=== PATIENT | female | born 1975 | race Caucasian/White ===

== ENCOUNTER 2020-09-11 10:17 | Day surgery (SDC) | payer OTHER ==
[~2020-09-11] VITALS: Ht 162.6 cm; Wt 91.2 kg
--- NOTE | 2020-09-11 10:34 | NUR ---
"I'VE HAD SHARP/STABBING ABD PAIN THREE TIMES THIS PAST WEEK, NOTHING WILL RELIEVE IT. ABOUT 0100 THIS MORNING ITS GOTTEN REALLY SEVERE." PT POINTS TO EPIGASTRIC AREA AND RADIATES TO SHOULDERS. HX OF GERD, SD (8-10YR AGO) DENIES TAKING ANY MEDS. EKG DONE IN [facility] AT 1034
--- NOTE | 2020-09-11 10:35 | NUR ---
PT STATES SHE IS ALSO ALLERGIC TO A LOT OF PAIN MEDICATIONS. UNSURE OF WHAT ONES OR WHAT HAPPENS WHEN SHE TAKES THEM.
--- NOTE | 2020-09-11 10:46 | NUR ---
patient arrives to er with pain in bilateral upper abdomen on and off for a week and is accompanied by sob. on monitor, rails up
[2020-09-11 11:07] LABS: MICROSCOPIC NOT IND
--- NOTE | 2020-09-11 11:15 | NUR ---
blood drawn, clean catch urine sent. patient in bed, awaiting ultrasound
[2020-09-11 11:27] LABS: BASOPHILS % (AUTO) 0 % (0-1); EOSINOPHILS % (AUTO) 3 % (1-7); LYMPHOCYTES % (AUTO) 23 % (22-44); MEAN CORPUSCULAR HEMOGLOBIN 31.7 pg (27.0-34.8); MEAN CORPUSCULAR HGB CONC 34.8 g/dL (32.4-35.8); MEAN PLATELET VOLUME 7.7 fL (7.4-10.4); MONOCYTES % (AUTO) 7 % (2-9); NEUTROPHILS % (AUTO) 66 % (42-75); PLATELET COUNT 193 x10^3/uL (130-400); RED BLOOD COUNT 4.45 x10^6/uL (3.82-5.3); RED CELL DISTRIBUTION WIDTH 13.1 % (9.6-15.2)
[2020-09-11 11:28] LABS: MD NO
[2020-09-11 11:39] LABS: ALANINE AMINOTRANSFERASE 20 U/L (12-78); ALBUMIN 3.1 g/dL (3.4-5.0); ANION GAP 8 mmol/L (5-15); CALCIUM 8.3 mg/dL (8.5-10.1); CHLORIDE 109 mmol/L (98-107); CREATININE 0.81 mg/dL (0.55-1.02)
[2020-09-11 11:44] LABS: ALKALINE PHOSPHATASE 94 U/L (45-117); BILIRUBIN,TOTAL 0.2 mg/dL (0.2-1.0); TOTAL PROTEIN 6.9 g/dL (6.4-8.2)
--- NOTE | 2020-09-11 13:52 | NUR ---
md discussed possible surgery surekha with patient, and that he is contacting surgery. patient aware. on monitor, rails up.
[2020-09-11] MEDS ORDERED: INDOCYANINE GREEN 25 MG VIAL IV STA (14:24)
[2020-09-11] MEDS ORDERED: CEFOTETAN PMX 1GM/50ML 50 ML IVPB ONE (14:30)
[2020-09-11] MEDS ORDERED: INDOCYANINE GREEN 25 MG VIAL ONE (14:33)
[2020-09-11] MEDS ORDERED: BUPIVACAINE/PF 0.5% ONE (14:36)
[2020-09-11] MEDS ORDERED: EPINEPHRINE 1 MG/ML, 1ML ONE (14:36)
--- NOTE | 2020-09-11 14:37 | NUR ---
report to stephanie escalante in surgery. patient rtg to surgery
[2020-09-11] MEDS ORDERED: FENTANYL PF 100 MCG/2ML ONE ×3 (14:44→17:43)
[2020-09-11] MEDS ORDERED: MIDAZOLAM 1 MG/ML, 2ML ONE (14:44)
[2020-09-11] MEDS ORDERED: CHLORHEXIDINE 15 ML UDC ONE (14:45)
[2020-09-11] MEDS ORDERED: LIDOCAINE GEL 2%, 5ML ONE (14:48)
[2020-09-11] MEDS ORDERED: MEPERIDINE/PF 25MG/0.5ML IVPush PRN (15:00)
[2020-09-11] MEDS ORDERED: KETOROLAC 30 MG/1 ML IVPush PRN (15:00)
[2020-09-11] MEDS ORDERED: HYDROcodone/APAP 7.5-325MG/15ML UDC PO PRN (15:00)
[2020-09-11] MEDS ORDERED: OXYcodone 5 MG/5 ML ORAL.SOL UDC PO PRN (15:00)
[2020-09-11] MEDS ORDERED: ONDANSETRON 2MG/ML, 2ML IVPush PRN (15:00)
[2020-09-11] MEDS ORDERED: LACTATED RINGERS 1,000 ML IV SCH (15:00)
[2020-09-11] MEDS ORDERED: PROMETHAZINE 25 MG/ML, 1ML IVPush PRN (15:00)
[2020-09-11] MEDS ORDERED: CHLORHEXIDINE 15 ML UDC MM ONE (15:00)
[2020-09-11] MEDS ORDERED: HYDROmorphone 1 MG/ML, 1ML INJ IVPush PRN (15:00)
[2020-09-11] MEDS ORDERED: SCOPOLAMINE 1MG PATCH TD ONE (15:10)
[2020-09-11] MEDS ORDERED: ONDANSETRON 2MG/ML, 2ML ONE ×2 (15:23→17:39)
[2020-09-11] MEDS ORDERED: ROCURONIUM 10 MG/ML,10ML ONE (15:23)
[2020-09-11] MEDS ORDERED: NEOSTIGMINE 1 MG/ML, 10ML ONE (15:23)
[2020-09-11] MEDS ORDERED: PHENYLEPHRINE 10 MG/ML ONE (15:23)
[2020-09-11] MEDS ORDERED: GLYCOPYRROLATE 0.2MG/1ML, 5ML ONE (15:23)
[2020-09-11] MEDS ORDERED: CEFAZOLIN 1,000 MG ONE (15:23)
[2020-09-11] MEDS ORDERED: PROPOFOL 10 MG/ML, 20ML ONE (15:23)
[2020-09-11] MEDS ORDERED: DEXAMETHASONE 4 MG/ML, 1ML ONE (15:23)
[2020-09-11] MEDS ORDERED: SUCCINYLCHOLINE 20 MG/ML, 10ML ONE (15:23)
[2020-09-11 15:25] VITALS: BP 135/87
[2020-09-11] MEDS ORDERED: SCOPOLAMINE 1MG PATCH TD SCH (15:30)
[2020-09-11] MEDS ORDERED: OXYC5TAB2 PO (16:54)
[2020-09-11] MEDS: FENTANYL PF 100 MCG/2ML IV PRN (17:45)
[2020-09-11] MEDS ORDERED: KETOROLAC 30 MG/1 ML ONE (17:49)
[2020-09-11] MEDS ORDERED: ACETAMINOPHEN 650 MG/20.3 ML UDC ONE (17:49)
[2020-09-11] MEDS ORDERED: OXYcodone 5 MG/5 ML ORAL.SOL UDC ONE (17:50)
== END 2020-09-11 20:25 | disposition home or self-care (01) ==
LOC: ED 13:11 → EDSTATUS 13:12 → EDIP 14:10 → UNDOADMIN 14:10 → OUT 16:45 → ED 20:45
PROVIDERS: ATTEND Emergency Medicine
DX: K80.12 Calculus of gallbladder with acute and chronic cholecystitis without obstruction (principal); K42.9 Umbilical hernia without obstruction or gangrene; K82.8 Other specified diseases of gallbladder; Z20.822 Contact with and (suspected) exposure to COVID-19; Z85.3 Personal history of malignant neoplasm of breast; Z88.2 Allergy status to sulfonamides; Z90.49 Acquired absence of other specified parts of digestive tract; Z90.12 Acquired absence of left breast and nipple
CPT/HCPCS: 36415; 47562; 49585; 76700; 80053; 81003; 83690; 84703; 85025; 87635; 88304; 93005; 96374; 99285; J0171; J0330; J0690; J1100; J1885; J2250; J2370; J2405; J2704; J2710; J3010; J7120